=== PATIENT | female | born 1970 | race African-American/Black ===

== ENCOUNTER 2016-06-16 11:28 | Emergency (ER) | payer OTHER ==
[~2016-06-16] VITALS: Ht 157.5 cm; Wt 68.9 kg
[~2016-06-16 11:28] MED LIST: CLINDAMYCIN HC300 MG ORAL; DOXYCYCLINE MO100 MG ORAL; IBUPROFEN600 MG ORAL; IBUPROFEN600 MG PO; NKM; SOMA350 MG PO; TYLENOL EXTRA500 MG ORAL; VICODIN 5-5001 EACH PO
[2016-06-16 12:17] VITALS: BP 105/63
[2016-06-16 12:29] VITALS: BP 105/63
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
== END 2016-06-16 12:29 | disposition home or self-care (01) ==
LOC: EMR 12:12
DX: M54.2 Cervicalgia (principal); M54.9 Dorsalgia, unspecified; V43.52XA Car driver injured in collision with other type car in traffic accident, initial encounter; Y92.410 Unspecified street and highway as the place of occurrence of the external cause; Y99.8 Other external cause status
CPT/HCPCS: 99282

== ENCOUNTER 2018-08-25 15:49 | Emergency (ER) | payer MEDICAID, OTHER ==
[~2018-08-25] VITALS: Ht 157.5 cm; Wt 77.1 kg
[2018-08-25 15:57] VITALS: BP 111/60
--- NOTE | 2018-08-25 15:59 | NUR ---
ED Nurse Note: Pt walked in to ER c/o abscess on medial forehead which presented for last 6 months. pt aao x4 and ambulatory. pt denied pain. no drainage present at this moment.
--- NOTE | 2018-08-25 16:12 | Emergency Room Report ---
History of Present Illness General Chief Complaint: Skin Rash/Abscess Source: Patient Present Illness HPI 48-year-old female with no significant past medical history here complaining of a mass on her forehead x2 months however she told the nurse that has been there for the past 6 months. Patient reports that started after she had her eye problems with back and she started squeezing it and smelly pus was coming out. Patient denies any pain or pruritus at the moment. There is a brown discoloration of the skin at the site however she reports that it was no problem the beginning and it was white and pus filled. Denies any pain radiation, denies headache, dizziness, blurry vision, head injury. She has not follow-up with her primary care provider in this regard and is extremely anxious. Allergies: Coded Allergies: No Known Allergies (Unverified , 03/16/12) Patient History Past Medical History: see triage record Past Surgical History: unable to obtain Pertinent Family History: none Last Menstrual Period: 08/03/18 Now: No Immunizations: UTD Reviewed Nursing Documentation: PMH: Agreed; PSxH: Agreed Nursing Documentation-PMH Past Medical History: No Stated History Review of Systems All Other Systems: negative except mentioned in HPI Physical Exam Vital Signs Date Time Temp Pulse Resp B/P (MAP) Pulse Ox O2 Delivery O2 Flow Rate FiO2 08/25/18 15:53 98.4 116 20 111/60 (77) 95 Room Air Sp02 EP Interpretation: reviewed, normal General Appearance: normal inspection, well appearing, no apparent distress, alert, GCS 15 Head: normocephalic, atraumatic Eyes: bilateral eye normal inspection, bilateral eye PERRL ENT: normal ENT inspection, hearing grossly normal, normal pharynx, no angioedema Neck: normal inspection, full range of motion, supple, thyroid normal, no meningismus Respiratory: normal inspection, chest non-tender, lungs clear, normal breath sounds, no rhonchi, no respiratory distress, no wheezing Cardiovascular #1: normal inspection, normal peripheral pulses, no murmur, normal capillary refill Gastrointestinal: normal inspection, non tender, soft Rectal: deferred Genitourinary: no CVA tenderness Musculoskeletal: normal inspection, back normal, no calf tenderness, other - eczema forehead with brown discoloration Neurologic: normal inspection, alert, oriented x3, responsive Psychiatric: normal inspection, judgement/insight normal, memory normal Skin: warm/dry, other - eczema forehead Lymphatic: normal inspection, no adenopathy Medical Decision Making PA Attestation All my diagnosis and treatment plans were reviewed ad discussed with my supervising physician Dr. Barrios Diagnostic Impression: Primary Impression: Contact dermatitis ER Course 48-year-old female with no significant past medical history here complaining of a mass on her forehead x2 months however she told the nurse that has been there for the past 6 months. Patient reports that started after she had her eye problems with back and she started squeezing it and smelly pus was coming out. Patient denies any pain or pruritus at the moment. There is a brown discoloration of the skin at the site however she reports that it was no problem the beginning and it was white and pus filled. Denies any pain radiation, denies headache, dizziness, blurry vision, head injury. She has not follow-up with her primary care provider in this regard and is extremely anxious. Ddx considered but are not limited to: Eczema, scabies, lice, Vital signs: are WNL, pt. is afebrile H&PE are most consistent with:contact dermatitis ORDERS: triamcinolone cream, bactroban ED INTERVENTIONS: None required at this time. DISCHARGE: At this time pt. is stable for d/c to home. Will provide printed patient care instructions, and any necessary prescriptions. Care plan and follow up instructions have been discussed with the patient prior to discharge. With a primary care provider and further evaluation Last Vital Signs Date Time Temp Pulse Resp B/P (MAP) Pulse Ox O2 Delivery O2 Flow Rate FiO2 08/25/18 15:57 98.4 72 20 111/60 95 Room Air Disposition: HOME, SELF-CARE Condition: Stable Scripts Mupirocin (MUPIROCIN) 15 Gm Cream..g. 1 APPLIC TOPIC THREE TIMES A DAY, #15 GM Prov: Mari Morales 08/25/18 Triamcinolone Acet (Triamcinolone Acetonide) 15 Gm Cream..g. 2 GM APPLIC BID, #15 GM Prov: Mari Morales 08/25/18 Patient Instructions: Contact Dermatitis, [id number] Additional Instructions: follow up with primary care provider and referral to [facility]. avoid touching the affected area Mari Morales Aug 25, 2018 16:12
[2018-08-25] MEDS ORDERED: MUPIROCIN15 GM TOPIC (16:13)
[2018-08-25] MEDS ORDERED: KENALOG 0.025%15 GM APPLIC (16:13)
--- NOTE | 2018-08-25 16:22 | NUR ---
ER DISCHARGE NOTE: Patient is cleared to be discharged per ERMD, pt is aox4, on room air, with stable vital signs. pt was given dc and prescription instructions, pt was able to verbalize understanding, pt id band removed without complications. pt is able to ambulate with steady gait. pt took all belongings.
[2018-08-25 16:23] VITALS: BP 120/67
== END 2018-08-25 16:20 | disposition home or self-care (01) ==
LOC: EMR 16:11
DX: L25.9 Unspecified contact dermatitis, unspecified cause (principal)
CPT/HCPCS: 99282

== ENCOUNTER 2019-01-15 18:00 | Emergency (ER) | payer MEDICAID ==
[~2019-01-15] VITALS: Ht 157.5 cm; Wt 77.1 kg
[~2019-01-15 18:00] MED LIST changes: +KENALOG 0.025%15 GM APPLIC; +MUPIROCIN15 GM TOPIC
[2019-01-15 18:21] VITALS: BP 110/73
[2019-01-15] MEDS ORDERED: Ketorolac 60mg Inj IM ONE (19:00)
[2019-01-15 19:39] LABS: BILIRUBIN, URINE NEGATIVE (NEGATIVE); GLUCOSE, URINE (UA) NEGATIVE (NEGATIVE); KETONES,URINE NEGATIVE (NEGATIVE); LEUKOCYTE ESTERASE ,URINE 1+ (NEGATIVE); NITRITE,URINE NEGATIVE (NEGATIVE); PH,URINE 6 (4.5-8.0); PROTEIN,URINE 1+ (NEGATIVE); UROBILINOGEN,URINE 1 MG/DL (0.0-1.0)
[2019-01-15 19:43] LABS: APPEARANCE,URINE SLIGHTLY CLOUDY; COLOR,URINE YELLOW
[2019-01-15] MEDS ORDERED: Lidocaine 1% MPF 10mg/ml 5ml IM ONE (19:45)
[2019-01-15] MEDS ORDERED: TYLENOL EXTRA500 MG ORAL (20:11)
[2019-01-15] MEDS ORDERED: CLINDAMYCIN HC300 MG ORAL (20:11)
--- NOTE | 2019-01-15 20:11 | Emergency Room Report ---
History of Present Illness General Chief Complaint: Vaginal Source: Patient Present Illness HPI 48-year-old female presents to the emergency department complaining of 10 out of 10 severity progressive localized pain, swelling and tenderness to the left vaginal labia x3 days. Patient reports history of Bartholin's gland cyst in the past. She denies purulent discharge, swollen tender lymph nodes or external vaginal lesions. Patient denies fevers or chills. Patient reports her symptoms are consistent with how she previously presented in the past when requiring incision and drainage. Patient has been attempting to do warm sitz bath's with no improvement. Allergies: Coded Allergies: No Known Allergies (Unverified , 03/16/12) Patient History Past Medical History: see triage record Past Surgical History: none Pertinent Family History: none Last Menstrual Period: 12/2018 Now: No Reviewed Nursing Documentation: PMH: Agreed; PSxH: Agreed Nursing Documentation-PMH Past Medical History: No History, Except For Review of Systems All Other Systems: negative except mentioned in HPI Physical Exam Vital Signs Date Time Temp Pulse Resp B/P (MAP) Pulse Ox O2 Delivery O2 Flow Rate FiO2 01/15/19 18:07 99.9 117 16 110/73 (85) 96 Room Air Sp02 EP Interpretation: reviewed, normal General Appearance: alert, GCS 15, non-toxic, mild distress Head: normocephalic, atraumatic Eyes: bilateral eye normal inspection, bilateral eye PERRL ENT: hearing grossly normal, normal voice Neck: full range of motion Respiratory: lungs clear, normal breath sounds, speaking full sentences Cardiovascular #1: regular rate, rhythm Gastrointestinal: non tender, soft Rectal: deferred Genitourinary: adnexa normal, other - Swelling, tenderness, erythema and warmth to the left lower external vaginal labia. No blisters or vesicles no lymphadenopathy. Musculoskeletal: back normal, gait/station normal, normal range of motion, non- tender Neurologic: alert, oriented x3, responsive, motor strength/tone normal, sensory intact, speech normal, grossly normal Psychiatric: judgement/insight normal Lymphatic: no adenopathy Medical Decision Making PA Attestation Dr. Ching Is my supervising Physician whom patient management has been discussed with. Diagnostic Impression: Primary Impression: Bartholin's gland infection Additional Impression: UTI (urinary tract infection) Qualified Codes: N30.01 - Acute cystitis with hematuria ER Course 48-year-old female presents to the emergency department complaining of 10 out of 10 severity progressive localized pain, swelling and tenderness to the left vaginal labia x3 days. Patient reports history of Bartholin's gland cyst in the past. She denies purulent discharge, swollen tender lymph nodes or external vaginal lesions. Patient denies fevers or chills. Patient reports her symptoms are consistent with how she previously presented in the past when requiring incision and drainage. Patient has been attempting to do warm sitz bath's with no improvement. Ddx considered but are not limited to cellulitis, abscess, cystic acne, necrotizing fasciitis, insect bite. Bartholin's gland abscess, STI Vital signs: are WNL, pt. is afebrile H&PE are most consistent with Bartholin's gland infection ORDERS: --UA: Moderate bacteria and white blood cells ED INTERVENTIONS: -I & D.--declined by pt.-- needle aspiration instead. 14cc purulent drainage aspirated. -Toradol -Clindamycin p.o. DISCHARGE: At this time pt. is stable for d/c to home. Will provide printed patient care instructions, and any necessary prescriptions. Care plan and follow up instructions have been discussed with the patient prior to discharge. Last Vital Signs Date Time Temp Pulse Resp B/P (MAP) Pulse Ox O2 Delivery O2 Flow Rate FiO2 01/15/19 18:07 99.9 117 16 110/73 (85) 96 Room Air Disposition: HOME, SELF-CARE Condition: Stable Scripts Acetaminophen* (TYLENOL EXTRA STRENGTH*) 500 Mg Tablet 500 MG ORAL Q6H, #20 TAB 0 Refills Prov: Robyn Zuniga 01/15/19 Clindamycin Hcl (CLINDAMYCIN HCL) 300 Mg Capsule 300 MG ORAL FOUR TIMES A DAY for 7 Days, #28 CAP Prov: Robyn Zuniga 01/15/19 Patient Instructions: Bartholin Cyst or Abscess, [id number] Additional Instructions: Take medications as directed. Follow up with a OBGYN within 3 days, even if your symptoms have resolved. Return sooner to ED if new symptoms occur, or current symptoms become worse. - Please note that this Emergency Department Report was dictated using [employer] developer manager technology software, occasionally this can lead to erroneous entry secondary to interpretation by the dictation equipment. Robyn Zuniga Jan 15, 2019 20:11
[2019-01-15 20:15] VITALS: BP 115/73
[2019-01-15] MEDS ORDERED: Clindamycin 150mg cap ORAL ONE (20:15)
== END 2019-01-15 20:15 | disposition home or self-care (01) ==
LOC: EMR 20:12
DX: N75.8 Other diseases of Bartholin's gland (principal); N30.01 Acute cystitis with hematuria
CPT/HCPCS: 81003; 81025; 87086; 96372; Z7502; 99283